=== PATIENT | female | born 1975 | race Caucasian/White ===

== ENCOUNTER 2022-03-21 07:08 | Emergency (ER) | payer OTHER ==
[~2022-03-21] VITALS: Ht 160 cm; Wt 61.2 kg
[2022-03-21 07:16] VITALS: BP_SYST 120
--- NOTE | 2022-03-21 07:46 | NUR ---
BIBS WITH C/C OF DIARRHEA AND RECTAL BLEEDING. PT SENT FROM GI DR. MONROY FOR EVAL FOR ANEMIA SECONDARY TO RECTAL BLEEDING AND CROHN'S DISEASE EXACERBATION. PT WITH 1 MONTH HX OF DIARRHEA. REPORTS WHATEVER SHE EATS COMES OUT WITH DIARRHEA. NAD NOTED, PT REPORTS LAST EPISODE OF DIARRHEA THIS AM BEFORE COMING TO ED. C/O PAIN 10/19, ADVISED BY GI MD NOT TO TAKE ANY NSAIDS.
[2022-03-21 08:04] LABS: BASOPHILS % (AUTO) 0.5 % (0.0-2.0); EOSINOPHILS # (AUTO) 0.8 K/uL (0.0-0.4); EOSINOPHILS % (AUTO) 9.7 % (0.0-4.0); HEMATOCRIT 36.7 % (36-48); LYMPHOCYTES # (AUTO) 1.5 K/uL (1.0-5.5); LYMPHOCYTES % (AUTO) 18.7 % (20.5-51.5); MEAN CORPUSCULAR VOLUME 90 fL (79.0-98.0); MONOCYTES # (AUTO) 0.5 K/uL (0.0-1.0); MONOCYTES % (AUTO) 6.1 % (1.7-9.3); PLATELET COUNT (AUTO) 338 K/uL (130-430); RED BLOOD CELL COUNT(AUTO) 4.09 MIL/uL (4.2-6.2); WHITE BLOOD COUNT (AUTO) 7.8 K/uL (4.8-10.8)
[2022-03-21 08:32] LABS: CALCIUM 9.2 mg/dL (8.4-11.0); CREATININE 0.7 mg/dL (0.55-1.30); POTASSIUM 3.8 mmol/L (3.5-5.1)
[2022-03-21 08:37] LABS: ALBUMIN 3.2 g/dL (3.4-4.8); C-REACTIVE PROTEIN QUANT 3.4 mg/dL (0-0.5); TOTAL BILIRUBIN 0.4 mg/dL (0.0-1.0)
[2022-03-21] MEDS ORDERED: HYDR-3917 PO (09:43)
[2022-03-21] MEDS ORDERED: IBUP-1969 PO (09:43)
[2022-03-21] MEDS ORDERED: PRED20TA PO (09:43)
--- NOTE | 2022-03-21 09:59 | NUR ---
PT SEEN BY DR. BLUNT. LABS REVIEWED. PT CLEARED FOR DC. VSS, AFEBRILE. NAD NOTED. PT GIVEN RX FOR PREDNISONE, NORCO, AND IBUPROFEN. PT WILL NOT TAKE IBUPROFEN DUE TO INFORMED NOT TO TAKE BY HER GI MD. PT VERBALIZED UNDERSTANDING OF HER DC INSTRUCTIONS. PT TO FOLLOW UP WITH HER GI DOCTOR. PT AMBULATED OUT OF ED IN STABLE CONDITION.
[2022-03-21 10:01] VITALS: BP_SYST 125
== END 2022-03-21 09:59 | disposition home or self-care (01) ==
LOC: SED 07:08
DX: K51.90 Ulcerative colitis, unspecified, without complications (principal); R10.84 Generalized abdominal pain; R19.7 Diarrhea, unspecified; Z79.899 Other long term (current) drug therapy
CPT/HCPCS: 36415; 76376; 80053; 82150; 83605; 83615; 83690; 85025; 86140; 99284